=== PATIENT | male | born 1955 | race African-American/Black ===

== ENCOUNTER 2017-09-21 13:15 | Emergency (ER) | payer BC, OTHER ==
[~2017-09-21] VITALS: Ht 177.8 cm; Wt 97.0 kg
[~2017-09-21 13:15] MED LIST: ASPI-864 PO; HYDR25TA PO; KETO10TA2 PO; METO25TA6 PO; [UNRECOGNIZED DRUG - CODE] TP
[2017-09-21 13:49] VITALS: BP 169/96
== END 2017-09-21 18:01 | disposition left against medical advice (07) ==
LOC: ER 13:58
DX: Z53.21 Procedure and treatment not carried out due to patient leaving prior to being seen by health care provider (principal)

== ENCOUNTER 2019-08-01 06:33 | Emergency (ER) | payer OTHER ==
[~2019-08-01] VITALS: Ht 180.3 cm; Wt 98.0 kg
[2019-08-01 08:26] VITALS: BP 134/79
== END 2019-08-01 08:28 | disposition home or self-care (01) ==
LOC: ER 06:33
DX: J06.9 Acute upper respiratory infection, unspecified (principal); I51.7 Cardiomegaly; I10 Essential (primary) hypertension; F17.210 Nicotine dependence, cigarettes, uncomplicated; Z98.61 Coronary angioplasty status; Z79.82 Long term (current) use of aspirin
CPT/HCPCS: 71045; 99283

== ENCOUNTER 2021-06-16 09:02 | Emergency (ER) | payer OTHER ==
[~2021-06-16] VITALS: Ht 182.9 cm; Wt 88.0 kg
[2021-06-16] MEDS ORDERED: KETOROLAC 60MG/2ML VIAL IM ONE (10:00)
[2021-06-16 12:05] LABS: CHLORIDE 106 mEq/L (98-107)
[2021-06-16 12:09] LABS: BASOPHILS % 0.5 % (0.0-2.0); EOSINOPHILS % 0.9 % (0.0-5.0); HEMATOCRIT. 44.5 % (42.0-52.0); HEMOGLOBIN. 14.4 g/dL (14.0-18.0); LYMPHOCYTES % 28.6 % (20.0-50.0); MEAN CORPUSCULAR HEMOGLOBIN 27.4 pg (28.0-32.0); MEAN CORPUSCULAR VOLUME 84.8 fL (80.0-94.0); MEAN PLATELET VOLUME 8.3 fl (7.4-10.4); MONOCYTES % 9.2 % (2.0-8.0); NEUTROPHILS % 60.8 % (40.0-76.0); PLATELET 169 x1000/uL (130-400); RED BLOOD CELL COUNT 5.24 mill/uL (4.7-6.1); RED CELL DISTRIBUTION WIDTH 18.7 % (11.6-14.6)
[2021-06-16] MEDS ORDERED: IBUP-2029 MT (12:47)
[2021-06-16 13:00] VITALS: BP 153/76
== END 2021-06-16 13:02 | disposition home or self-care (01) ==
LOC: ER 09:20
DX: S20.212A Contusion of left front wall of thorax, initial encounter (principal); W18.39XA Other fall on same level, initial encounter; Y93.89 Activity, other specified; Y92.89 Other specified places as the place of occurrence of the external cause; Y99.8 Other external cause status; I10 Essential (primary) hypertension; Z79.899 Other long term (current) drug therapy
CPT/HCPCS: 36415; 71045; 80053; 85025; 93005; 96372; 99285; J1885